=== PATIENT | female | born 2005 | race Caucasian/White ===

== ENCOUNTER 2025-01-08 11:39 | Emergency (ER) | payer BC ==
[2025-01-08] MEDS ORDERED: Acetaminophen 500 MG TAB ONE ×2 (12:16→17:12)
[2025-01-08 12:29] LABS: #Basophils 0.03 10x3/uL (0.0-0.2); #Eosinophils Less than 0.03 10x3/uL (0.0-0.7); %Basophils 0.3 % (0.0-1.0); %Eosinophils 0.1 % (0.0-10.0); %Lymphocytes 9.1 % (21.0-51.0); %Monocytes 10.4 % (0.0-10.0); %Neutrophils 79.8 % (42.0-75.0); Hematocrit 36.1 % (36.0-47.0); Hemoglobin 12.2 g/dL (12.0-16.0); Mean Corpuscular HGB CONC 33.8 g/dL (32.0-36.0); Mean Corpuscular Hemoglobin 30.8 pg (27.0-31.0); Mean Corpuscular Volume 91.2 fL (78.0-98.0); Mean Platelet Volume 10.3 fL (7.4-10.4); Platelet Count 247 10x3/uL (130-400); Red Blood Cell (RBC) Count 3.96 mill/uL (4.20-5.40)
[2025-01-08 12:37] LABS: Mononucleosis NEGATIVE (NEGATIVE)
[2025-01-08 12:38] LABS: MONO NEGATIVE CONTROL ZONE White (Negative) (White); MONO POSITIVE CONTROL Pink Line (Positive) (PINK/RED)
[2025-01-08 12:45] LABS: ALT (SGPT) 13 U/L (Less than 34); AST (SGOT) 30 U/L (11-34); Albumin 3.5 g/dL (3.1-4.5); Alkaline Phosphatase 61 U/L (40-110); Anion Gap 12 mmol/L (10-20); BUN (Urea Nitrogen) 6 mg/dL (7.0-18.7); Bilirubin, Total 0.2 mg/dL (0.3-1.2); Calc. Creatinine Clearance 0 mL/min (70-130); Calcium 8.4 mg/dL (7.8-10.44); Carbon Dioxide 23 mmol/L (22-29); Chloride 104 mmol/L (98-107); Estimated GFR 130; Globulin 3.2 g/dL (2.4-3.5); Glucose 84 mg/dL (70-105); Potassium 3.2 mmol/L (3.5-5.1); Protein, Total 6.7 g/dL (6.0-8.3); Sodium 136 mmol/L (136-145)
[2025-01-08 12:51] LABS: BHCG - Serum Negative (NEGATIVE); Pregs Control Background? CLEAR/WHITE (CLR/WHITE); Pregs Control Bar Appear? YES (CONTROL BAR)
[2025-01-08] MEDS ORDERED: Lidocaine 1% w/Epinephrine 1:100K 20 ML VIAL ONE (13:11)
[2025-01-08] MEDS ORDERED: Midazolam HCl 2 mg/2 ml Vial ONE (14:16)
[2025-01-08] MEDS ORDERED: Ketorolac Tromethamine 30 MG (1 mL) VIAL ONE (15:27)
[2025-01-08] MEDS ORDERED: cefTRIAXone (ROCEPHIN) 2 GM VIAL ONE (15:28)
[2025-01-08] MEDS ORDERED: Sodium Chloride 0.9% 100 ML ONE (15:28)
[2025-01-08 15:40] LABS: CSF, Glucose 59 mg/dl (40-70); CSF, Protein 27.6 mg/dL (15-40)
[2025-01-08 15:45] LABS: Clarity Clear (Clear); Tube # 1
[2025-01-08] MEDS ORDERED: Vancomycin HCl 500 MG VIAL ONE (15:57)
[2025-01-08 16:24] LABS: CSF Source CSF; Clarity Clear (Clear); Tube # 4
[2025-01-08 16:25] LABS: Color Of CSF Supernatant COLORLESS (Colorless); Tube # 2; Unspun CSF Color COLORLESS (Colorless)
[2025-01-08] MEDS ORDERED: Dexamethasone 10 MG/ML VIAL ONE (16:52)
[2025-01-08] MEDS ORDERED: diphenhydrAMINE 50 MG/ML VIAL ONE (17:21)
[2025-01-08] MEDS ORDERED: Metoclopramide HCl 10 MG (2 mL) VIAL ONE (17:21)
[2025-01-08 18:29] LABS: CSF Source CSF
== END 2025-01-08 18:15 | disposition home or self-care (01) ==
LOC: ERS 11:39
DX: J03.90 Acute tonsillitis, unspecified (principal); R51.9 Headache, unspecified
CPT/HCPCS: 36415; 62270; 70450; 70491; 80053; 82945; 84145; 84157; 84703; 85025; 86141; 86308; 87040; 87070; 87205; 87428; 89051; 96365; 96367; 96375; J0696; J1100; J1200; J1885; J2250; J2765; J3370